=== PATIENT | male | born 1985 | race Caucasian/White ===

== ENCOUNTER → 2022-12-13 08:51 | Outpatient (CLI) | payer OTHER, SELFPAY ==
--- NOTE | 2022-12-13 | DI.RAD.S_ITS ---
PROCEDURE: XR PELVIS 1-2V INDICATIONS: Low back pain, unspecified TECHNIQUE: Single view(s) of the pelvis acquired. COMPARISON: None. FINDINGS: Bones: No fractures or dislocations. No suspicious bony lesions. Soft tissues: Visualized bowel gas pattern is normal. No suspicious soft tissue calcifications. IMPRESSION: No radiographic abnormalities. Dictated by: Romelia Taveras M.D. on 12/13/2022 at 13:21 Approved by: Romelia Taveras M.D. on 12/13/2022 at 13:21
--- NOTE | 2022-12-13 | DI.RAD.S_ITS ---
PROCEDURE: XR LUMBAR SPINE 2-3V INDICATIONS: Low back pain, unspecified TECHNIQUE: 3 views of the lumbar spine were acquired. COMPARISON: None. FINDINGS: Bones: 5 [id number] vertebrae are present. This digital ribs are present at T12. There is normal bony alignment. No vertebral body compression fractures. No suspicious bony lesions. Soft tissues: Overlying bowel gas pattern is normal. No suspicious soft tissue calcifications. IMPRESSION: Intervertebral disc height is preserved. No compression deformities. Dictated by: Romelia Taveras M.D. on 12/13/2022 at 13:20 Approved by: Romelia Taveras M.D. on 12/13/2022 at 13:21
== END ==
PROVIDERS: Referring Provider Chiropractor; Visit Provider Chiropractor
DX: M99.03 Segmental and somatic dysfunction of lumbar region (principal); M99.04 Segmental and somatic dysfunction of sacral region; M54.50 Low back pain, unspecified
CPT/HCPCS: 72100; 72170